=== PATIENT | female | born 1990 | race Caucasian/White ===

== ENCOUNTER 2023-11-23 16:32 | Emergency (ER) | payer MEDICAID, SELFPAY ==
[2023-11-23 16:36] VITALS: BP 129/91; PULSE 80; RESP 18; TEMP 36.7; O2SAT 99
[2023-11-23 16:45] LABS: Glucometer 93 mg/dL (74-106)
--- NOTE | 2023-11-23 16:49 | ED.GENADUL1 ---
HPI - General Adult General Chief complaint: Abdominal Pain Stated complaint: Abdominal Pain Lower Pain Time Seen by Provider: 11/23/23 16:43 Source: patient Mode of arrival: walk-in History of Present Illness HPI narrative: Patient is a 33-year-old female who presents to the ER for a 1 day history of rash under the breasts and to the pannus. She states the rash is odorous, bleeding under the abdominal pannus extending to the vaginal area. She does not have a history of diabetes. No medications applied at home. No fevers or vomiting. She is not concerned for . Related Data Previous Rx's Medication Instructions Recorded fluconazole 150 mg tablet 150 mg PO DAILY #7 tabs 11/23/23 nystatin-triamcinolone 100,000 1 applic topical BID #15 grams 11/23/23 unit/g-0.1 % topical cream Allergies Allergy/AdvReac Type Severity Reaction Status Date / Time Penicillins Allergy Severe Verified 11/23/23 16:41 Review of Systems ROS Constitutional Denies: fever or chills Ears, nose, mouth, and throat Denies: throat pain Cardiovascular Denies: chest pain Respiratory Denies: shortness of breath Gastrointestinal Denies: nausea or vomiting Genitourinary Denies: painful urination or urinary frequency Integumentary/Breast Reports: rash, redness, skin pain and skin tenderness Neurological Denies: headache Exam Narrative Exam Narrative: Gen.: Awake, alert, in no distress Head: Normocephalic, atraumatic ENT: Moist mucous membranes Respiratory: No respiratory distress Extremities: Moves extremities equally Psych: Normal mood and affect Neuro: No focal neuro deficit Skin: Patient with erythematous rash under the bilateral breasts with satellite lesions consistent with candidal infection. Patient with large area of erythema, irritation and minimal drainage consistent with candidal infection under the pannus. There is no dehiscence of previous incision, no active bleeding or deep open lesions. Rash extends to the mons pubis with no extension into the vagina. Constitutional Vital Signs, click to edit/add: Last Vital Signs Temp 98.1 F 11/23/23 16:36 Pulse 80 11/23/23 16:36 Resp 18 11/23/23 16:36 BP 129/91 11/23/23 16:36 Pulse Ox 99 11/23/23 16:36 O2 Del Method Room Air 11/23/23 16:36 Course Vital Signs Vital signs: Vital Signs Temperature 98.1 F 11/23/23 16:36 Pulse Rate 80 11/23/23 16:36 Respiratory Rate 18 11/23/23 16:36 Blood Pressure 129/91 11/23/23 16:36 Pulse Oximetry 99 11/23/23 16:36 Oxygen Delivery Method Room Air 11/23/23 16:36 Temperature 98.1 F 11/23/23 16:36 Pulse Rate 80 11/23/23 16:36 Respiratory Rate 18 11/23/23 16:36 Blood Pressure 129/91 11/23/23 16:36 Pulse Oximetry 99 11/23/23 16:36 Oxygen Delivery Method Room Air 11/23/23 16:36 Medical Decision Making MDM Narrative Medical decision making narrative: Exam is consistent with multiple areas of candidal infection. Started on oral Diflucan as well as Mycolog for comfort. She was given her first dose of Diflucan in the ER and given nystatin powder from the ER with prescriptions for home. She was encouraged to apply a washcloth to the area of her pannus to prevent further irritation and drainage. Her blood sugar was checked in the ER within normal limits. Follow-up with PCP and return to the ER if symptoms change or worsen. Medical Records Medical records reviewed: Yes I reviewed the patient's medical records Lab Data Labs: Lab Results 11/23/23 Range/Units 16:44 POC Glucose 93 (74-106) mg/dL Discharge Plan Discharge Chief Complaint: Abdominal Pain Clinical Impression: Gabi infection Patient Disposition: Home, Self-Care Time of Disposition Decision: 16:47 Condition: Good Prescriptions / Home Meds: New fluconazole 150 mg tablet 150 mg PO DAILY Qty: 7 0RF nystatin-triamcinolone 100,000-0.1 unit/g-% cream 1 applic topical BID Qty: 15 0RF Instructions: Yeast Infection (ED) Stand Alone Forms: Portal Instructions Referrals: Physician,Non-Staff, MD [Primary Care Provider] - 1 week
[2023-11-23] MEDS: FLUCONAZOLE 150 MG TABLET PO (17:02)
[2023-11-23] MEDS: NYSTATIN 15 GM POWDER 1 APPLIC TOPICAL (17:04)
[2023-11-23 17:11] VITALS: BP 115/74; PULSE 67; RESP 18; O2SAT 98
== END 2023-11-23 17:12 | disposition home or self-care (01) ==
PROVIDERS: Emergency Provider Emergency Medicine
DX: B37.9 Candidiasis, unspecified (principal)
CPT/HCPCS: 36415; 36416; 82948; 99283

== ENCOUNTER 2024-11-25 10:51 | Outpatient (OUT) | payer MEDICAID, SELFPAY | END 2024-11-25 10:52 | disposition home or self-care (01) | LOC: SLEEP 10:51 | DX: G47.33 Obstructive sleep apnea (adult) (pediatric) (principal); R29.818 Other symptoms and signs involving the nervous system | CPT/HCPCS: 95806 ==

== ENCOUNTER 2025-03-04 17:46 | Emergency (ER) | payer MEDICAID, SELFPAY ==
[2025-03-04 17:48] VITALS: BP 117/84; PULSE 69; TEMP 36.8; O2SAT 98; BMI 51.7
--- NOTE | 2025-03-04 18:02 | ECG_ITS ---
[facility] Test Date: 2025-03-04 Pat Name: LOBO CEJA Department: Room: - Gender: Female B[employer]: : 1990 Requested By: [id number] Order Number: [id number] Reading MD: ANIYAH DANIELSON M.D. Measurements Intervals [place] Rate: 72 P: 36 [place]: 174 QRS: -23 QRSD: 88 T: 11 QT: 402 QTc: 427 Interpretive Statements 1100 Sinus rhythm 7202 Moderate left axis deviation 8102 Low QRS voltage in chest leads 9120 atypical ECG No previous ECG available for comparison Electronically Signed On 03-04-2025 21:35:57 EDT by ANIYAH DANIELSON M.D.
--- NOTE | 2025-03-04 18:03 | ED_ITS ---
HPI HPI - General Adult General Chief complaint: Chest Pain Stated complaint: CP Time Seen by Provider: 03/04/25 17:47 Source: patient Mode of arrival: ambulance Limitations: no limitations History of Present Illness HPI narrative: 34-year-old female presents to the emergency department for chest pain. She had it on and off all day and then continuously for the last hour. It is in her l eft upper chest and she states her left arm feels numb. She has been under a great deal of stress recently because of her children. There has been no injury or unusual activity. She was sitting on the couch when it became worse an hour ago. Related Data Home Medications ?Medication ?Instructions ?Recorded ?Confirmed aripiprazole 10 mg tablet mg 03/04/25 colchicine 0.6 mg tablet mg 03/04/25 levetiracetam 500 mg tablet mg PO 03/04/25 sertraline 50 mg tablet mg 03/04/25 trazodone 50 mg tablet mg 03/04/25 Previous Rx's ?Medication ?Instructions ?Recorded fluconazole 150 mg tablet 150 mg PO DAILY #7 tabs 10/29 05/20 nystatin-triamcinolone 100,000 1 applic topical BID #1 5 grams 11/23/23 unit/g-0.1 % topical cream Allergies Allergy/AdvReac Type Severity Reaction Status Date / Time Penicillins Allergy Severe Anaphylaxis Verified 03/04/25 17:54 Opioid HPI Opioid Management Most Recent Opioid Data: Last Pain Scale 5 Today, 18:34 Last DEC Pain Assessment Today, 18:34 Review of Systems ROS Narrative A ten point review of systems is negative except as noted above. PFSH PFSH Social History Little interest or pleasure in doing things: not at all Feeling down, depressed, or hopeless: not at all Exam Narrative Exam Narrative: Nurses note and vital signs reviewed and patient is not hypoxic. General: The patient appears in no apparent distress. Skin: Warm, dry, no pallor noted. There is no rash noted. Head: Normocephalic, atraumatic Eye: Normal conjunctiva, no drainage Ears, Nose, Mouth, and Throat: oral mucosa is moist. Nares patent. Cardiovascular: Regular Rate and Rhythm; palpation of the left upper chest wall reveals no crepitus. There is no bruise or rash. Palpation seems to reproduce her symptoms. Respiratory: Patient is in no distress, no accessory muscle use, lungs are clear to auscultation, no wheezing, rales or rhonchi Back: non-tender GI: Obese and nontender Musculoskeletal: The patient has no evidence of calf tenderness, no pitting edema, symmetrical pulses noted bilaterally Neurological: A&O, normal speech Psychiatric: Cooperative Constitutional Vital Signs, click to edit/add: Last Vital Signs Temp 98.3 F 03/04/25 17:48 Pulse 69 03/04/25 17:48 Resp 18 03/04/25 17:48 BP 117/84 03/04/25 17:48 Pulse Ox 98 03/04/25 17:48 O2 Del Method Room Air 03/04/25 17:48 Course Vital Signs Vital signs: Vital Signs Temperature 98.3 F 03/04/25 17:48 Pulse Rate 69 03/04/25 17:48 Respiratory Rate 18 03/04/25 17:48 Blood Pressure 117/84 03/04/25 17:48 Pulse Oximetry 98 03/04/25 17:48 Oxygen Delivery Method Room Air 03/04/25 17:48 Temperature 98.3 F 03/04/25 17:48 Pulse Rate 69 03/04/25 17:48 Respiratory Rate 18 03/04/25 17:48 Blood Pressure 117/84 03/04/25 17:48 Pulse Oximetry 98 03/04/25 17:48 Oxygen Delivery Method Room Air 03/04/25 17:48 Medical Decision Making MDM Narrative Medical decision making narrative: Her workup is negative. Her pain is reproducible and she was given IV Toradol. The possibility that this is related to anxiety was discussed with the patient as well. Treatment diagnosis and follow-up were discussed with the patient. I have no clinical suspicion of acute cardiac or pulmonary etiology Differential Diagnosis Differential Diagnosis: Myocardial infarction, pneumothorax, chest wall pain, anxiety Lab Data Lab results reviewed: Yes I reviewed the patient's lab results Labs: Lab Results 03/04/25 Range/Units 18:00 WBC 12.6 H (4.0-11.0) 10^3/uL RBC 4.23 (4.20-5.40) 10^6/uL Hgb 13.2 (12.0-16.0) g/dL Hct 38.3 (36.0-48.0) % MCV 90.5 (81.0-99.0) fL MCH 31.2 (26.7-34.0) pg MCHC 34.5 (29.9-35.2) g/dL RDW 13.5 (11.0-15.0) % Plt Count 254 (150-450) 10^3/uL MPV 10.6 (9.5-13.5) fL Neut % (Auto) 69.2 (43.0-75.0) % Lymph % (Auto) 20.3 L (20.5-60.0) % [place] % (Auto) 4.9 (1.7-12.0) % Eos % (Auto) 4.7 (0.9-7.0) % Baso % (Auto) 0.5 (0.2-2.0) % Neut # (Auto) 8.7 H (1.4-6.5) 10^3/uL Lymph # (Auto) 2.6 (1.2-3.8) 10^3/uL [place] # (Auto) 0.6 (0.3-0.8) 10^3/uL Eos # (Auto) 0.6 (0.0-0.7) 10^3/uL Baso # (Auto) 0.1 (0.0-0.1) 10^3/uL Abs Immat Gran (auto) 0.05 H (0.00-0.03) 10^3/uL Imm/Tot Granulo (auto) 0.4 (0.0-0.5) % Sodium 134 L (136-145) mmol/L Potassium 3.9 (3.5-5.1) mmol/L Chloride 100 (98-107) mmol/L Carbon Dioxide 30.7 (21.0-32.0) mmol/L Anion Gap 7.2 BUN 10.0 (7.0-18.0) mg/dL Creatinine 0.99 (0.55-1.02) mg/dL Est GFR ( Amer) >60 (>=60 mL/min/1.73m^2) Est GFR (Non-Af Amer) >60 (>=60 mL/min/1.73m^2) BUN/Creatinine Ratio 10.1 Glucose 98 (74-106) mg/dL Calcium 8.7 (8.5-10.1) mg/dL Troponin I High Sens 10.3 (4.0-51.3) pg/mL Imaging Data Chest x-ray: Radiologist's impression: No acute process ECG Data Attestation: I personally reviewed and interpreted this ECG as follows: (EKG on my interpretation shows normal sinus rhythm with a rate of 72 and no acute change.) Discharge Plan Discharge Chief Complaint: Chest Pain Clinical Impression: Chest pain Patient Disposition: Home, Self-Care Time of Disposition Decision: 18:42 Condition: Good Mode of Transportation: Private Vehicle Prescriptions / Home Meds: No Action trazodone 50 mg tablet levetiracetam 500 mg tablet PO colchicine 0.6 mg tablet sertraline 50 mg tablet aripiprazole 10 mg tablet fluconazole 150 mg tablet 150 mg PO DAILY Qty: 7 0RF nystatin-triamcinolone 100,000-0.1 unit/g-% cream 1 applic topical BID Qty: 15 0RF Print Language: Hungarian Instructions: Chest Pain (ED) Referrals: Physician,Non-Staff, MD [Physician] - 1 week
[2025-03-04 18:10] LABS: Basophils Absolute Auto 0.1 10^3/uL (0.0-0.1); Basophils Percent Auto 0.5 % (0.2-2.0); Eosinophils Absolute Auto 0.6 10^3/uL (0.0-0.7); Eosinophils Percent Auto 4.7 % (0.9-7.0); Hematocrit 38.3 % (36.0-48.0); Hemoglobin 13.2 g/dL (12.0-16.0); Immature Granulocytes Abs Auto 0.05 10^3/uL (0.00-0.03); Immature Granulocytes Pct Auto 0.4 % (0.0-0.5); Lymphocytes Absolute Auto 2.6 10^3/uL (1.2-3.8); Lymphocytes Percent Auto 20.3 % (20.5-60.0); Mean Corpuscular HGB Conc 34.5 g/dL (29.9-35.2); Mean Corpuscular Hemoglobin 31.2 pg (26.7-34.0); Mean Corpuscular Volume 90.5 fL (81.0-99.0); Mean Platelet Volume 10.6 fL (9.5-13.5); Monocytes Absolute Auto 0.6 10^3/uL (0.3-0.8); Monocytes Percent Auto 4.9 % (1.7-12.0); Neutrophils Absolute Auto 8.7 10^3/uL (1.4-6.5); Neutrophils Percent Auto 69.2 % (43.0-75.0); Platelet Count 254 10^3/uL (150-450); Red Blood Count 4.23 10^6/uL (4.20-5.40); Red Cell Distribution Width 13.5 % (11.0-15.0); White Blood Count 12.6 10^3/uL (4.0-11.0)
[2025-03-04 18:28] LABS: Anion Gap 7.2; BUN Creatinine Ratio 10.1; Calcium 8.7 mg/dL (8.5-10.1); Carbon Dioxide 30.7 mmol/L (21.0-32.0); Chloride 100 mmol/L (98-107); Estimated GFR (African America >60 (>=60 mL/min/1.73m^2); Estimated GFR (Non-African Ame >60 (>=60 mL/min/1.73m^2); Glucose 98 mg/dL (74-106); Potassium 3.9 mmol/L (3.5-5.1); Sodium 134 mmol/L (136-145); Troponin I High Sensitivity 10.3 pg/mL (4.0-51.3)
[2025-03-04] MEDS: KETOROLAC TROMETHAMINE 30 MG/ML VIAL IVP (18:34)
== END 2025-03-04 19:00 | disposition home or self-care (01) ==
PROVIDERS: Emergency Provider Emergency Medicine; PCP Internal Medicine
DX: R07.9 Chest pain, unspecified (principal)
CPT/HCPCS: 36415; 71045; 80048; 84484; 85025; 93005; 96374; 99285; J1885